=== PATIENT | female | born 2000 | race Native Hawaiian/Other Pacific Islander ===

== ENCOUNTER 2022-03-02 07:55 | Day surgery (SDC) | payer MEDICAID, SELFPAY ==
[2022-03-02] VITALS (12 sets, daily range): BP systolic 120–140; BP diastolic 75–90; PULSE 81–109; RESP 12–20; TEMP 36.5–36.7; O2SAT 96–98; BMI 25.7
[2022-03-02 08:20] LABS: Ur HCG Qualitative* Negative (Negative)
[2022-03-02] MEDS: SODIUM CHLORIDE 0.9 % (FLUSH) 10 ML SYRINGE IVF (08:30)
[2022-03-02] MEDS: LACTATED RINGERS 1000 ML 1,000 ML 103.5 ML IV (08:30)
[2022-03-02] MEDS: ETHYL CHLORIDE 1 APPLICATION 1 APPLIC TOPICAL (08:30)
[2022-03-02] MEDS: LACTATED RINGERS 1000 ML 1,000 ML 100 ML IV (08:30)
[2022-03-02] MEDS: OXYMETAZOLINE 0.05% NASAL SPRAY 2 SPRAY NOSTRIL-B (08:40)
--- NOTE | 2022-03-02 09:57 | W.ANESCHARGE ---
Anesthesia Charges Start Date/Time Anesthesia Start Date: 03/02/22 Anesthesia Start Time: 09:00 Stop Date/Time Anesthesia Stop Date: 03/02/22 Anesthesia Stop Time: 09:56 Summary Emergency: No
--- NOTE | 2022-03-02 09:58 | W.ANESCHARGE ---
Anesthesia Charges Start Date/Time Anesthesia Start Date: 03/02/22 Anesthesia Start Time: 09:00 Stop Date/Time Anesthesia Stop Date: 03/02/22 Anesthesia Stop Time: 09:56 Summary Emergency: No
[2022-03-02] MEDS: fentaNYL 100 MCG/2 ML inj 50 MCG IVP ×2 (10:00→10:06)
--- NOTE | 2022-03-02 10:21 | SUR.PHASEI ---
D) PT. C/O PAIN - 5/10 I) FENTANYL - SEE EMAR A) PT. STATES PAIN IS LESS - 1-2/10 P) CONTINUE TO MONITOR AND TREAT PER ORDERS.
--- NOTE | 2022-03-02 10:36 | SUR.PHASEI ---
JODEE, PT. TANSFERRED TO [facility] VIA CART.
[2022-03-02] MEDS: OXYCODONE 5 MG TABLET PO (10:46)
[2022-03-02] MEDS: IBUPROFEN 200 MG TABLET PO (10:46)
--- NOTE | 2022-03-02 11:34 | W.PM.ENTPROC ---
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 Postoperative diagnosis same Procedure adenoidectomy, nasal septoplasty, submucous partial resection inferior turbinates, endoscopic partial resection left middle turbinate claude bullosa. Under general trach anesthesia patient was prepped and draped in usual fashion. McIvor mouth gag was inserted and the tongue retracted forward. There is this moderately enlarged adenoid pad was visualized with a laryngeal mirror. This was removed with suction cautery. Attention was turned to the nose after regarding and gloving. The nose was injected and decongested. A right hemitransfixion incision was made left anterior and posterior tunnels were created. A vertical incision was made through the cartilage and a right posterior tunnel created. The posterior deflected portions of septal bone were resected 2 large pieces were trimmed and returned to the intraseptal space. Hemitransfixion was closed with 2 4 chromic sutures. A stab incision was made in the anterior head of the right inferior turbinate a tunnel created with a [place] dissector. A conservative anterior submucous resection was performed with the Brian forceps. The Coblation was used for hemostasis and to cauterize the anterior 10% intramurally. This was repeated on the left side in identical fashion. Remainder procedure was done with the available assistance of a 0 degree endoscope. The left middle turbinate claude was incised along its lateral aspect and the bone infractured and then crushed with the Mohan forceps. Silastic stents were secured on either side of the septum with 3-0 nylon. A Merocel pack was then trimmed lengthwise coated with Bactroban and placed beneath the middle turbinates on each side. Patient opted 0 thickening current satisfactory condition blood loss was less than 25 mL. There were no complications Surgeon: Noble Trevino MD
== END 2022-03-02 11:35 | disposition home or self-care (01) ==
PROVIDERS: Anesthesiology; PCP Family Medicine; Visit Provider Otolaryngology
PROC: (CPT 42831; principal; 2022-03-02 09:00)
PROC: (CPT 31231; 2022-03-02 09:00)
DX: J34.2 Deviated nasal septum (principal); J35.2 Hypertrophy of adenoids; J34.3 Hypertrophy of nasal turbinates; R51.9 Headache, unspecified; J34.89 Other specified disorders of nose and nasal sinuses
CPT/HCPCS: 42831; 30520; 30140; 31240; 00160; 81025; A9270; J0330; J1100; J2250; J2405; J2704; J3010; J7120